=== PATIENT | male | born 1990 | race Caucasian/White ===

== ENCOUNTER → 2017-08-29 10:22 | Outpatient (CLI) | payer BC, SELFPAY ==
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
== END ==
PROVIDERS: PCP Family Medicine; Visit Provider Nurse Practitioner Family
DX: M25.561 Pain in right knee (principal)
CPT/HCPCS: 73562

== ENCOUNTER → 2018-08-28 08:41 | Outpatient (POV) | payer BC, SELFPAY | PROVIDERS: Visit Provider Otolaryngology | DX: Z00.00 Encounter for general adult medical examination without abnormal findings (principal) ==

== ENCOUNTER → 2018-08-31 14:30 | Outpatient (CLI) | payer BC, SELFPAY ==
--- NOTE | 2018-08-31 14:38 | CT_ITS ---
CT sinus wo con CLINICAL INDICATION: ITS.REASON: PRESSURE AND DECREASED HEARING BILATERALLY, FACIAL PAIN ORDERING PHYSICIAN: Nancy Farias MD PATIENT AGE: 28 years COMPARISON: None TECHNIQUE:Axial images obtained with sagittal and coronal reformats. All CT scans at the facility use one or more dose reduction, viz: automated exposure control, ma/kV adjustment per patient size (including targeted exams where dose is matched to indication, i.e. head), or iterative reconstruction technique. FINDINGS: Bones: Unremarkable. No fracture, lytic, or blastic changes evident Extracranial soft tissues: Unremarkable Sinuses: Unremarkable. No air-fluid levels or significant mucosal thickening Orbits: Unremarkable Other: There is mild leftward nasal septal deviation anteriorly. The ostiomeatal units are patent. Temporomandibular joints are unremarkable. No mastoid effusion. Middle ears are aerated. IMPRESSION: Negative CT of the sinuses
== END ==
PROVIDERS: PCP Family Medicine; Visit Provider Otolaryngology
DX: H91.93 Unspecified hearing loss, bilateral (principal); H93.8X3 Other specified disorders of ear, bilateral; R51 Headache
CPT/HCPCS: 70486

== ENCOUNTER → 2018-12-27 12:26 | Outpatient (CLI) | payer BC, SELFPAY ==
--- NOTE | 2018-12-27 12:33 | XR_ITS ---
XR sacrum coccyx min 2V CLINICAL INDICATION: ITS.REASON: COCCYDYNIA ORDERING PHYSICIAN: Magrot Rangel APRN PATIENT AGE: 28 years Comparison: None FINDINGS: No fracture or dislocation. Normal alignment. No lytic or blastic change. IMPRESSION: Negative sacrum/coccyx
== END ==
PROVIDERS: PCP Family Medicine; Visit Provider Nurse Practitioner Family
DX: M53.3 Sacrococcygeal disorders, not elsewhere classified (principal)
CPT/HCPCS: 72220

== ENCOUNTER → 2019-07-09 15:52 | Outpatient (CLI) | payer BC, SELFPAY ==
--- NOTE | 2019-07-09 16:00 | XR_ITS ---
PROCEDURE: XR LUMBAR SPINE MIN 4V CLINICAL INDICATION: LOW BACK PAIN Low back pain, COMPARISON: ABDPELWO CT abdomen pelvis wo con from 06/17/2018 FINDINGS: Normal alignment. No fracture or dislocation. No significant degenerative change. No lytic or blastic lesion. SI joints have an unremarkable appearance IMPRESSION: Negative lumbar spine Dictated by: Mikael Alvarze MD 07/09/2019 17:14 Electronically signed by Mikael Alvarez MD in [place] 07/09/2019 17:14
== END ==
PROVIDERS: PCP Family Medicine; Visit Provider Nurse Practitioner Family
DX: M54.5 Low back pain (principal)
CPT/HCPCS: 72110

== ENCOUNTER 2021-03-18 18:08 | Emergency (ER) | payer BC, SELFPAY ==
[2021-03-18 18:22] VITALS: BP 154/90; PULSE 78; RESP 16; TEMP 36.8; O2SAT 100; BMI 30.7
--- NOTE | 2021-03-18 18:23 | XR_ITS ---
PROCEDURE INFORMATION: Exam: XR Left Hand Exam date and time: 03/18/2021 6:23 PM Age: 31 years old Clinical indication: Pain; Hand; Left; Additional info: Transfer case hit it TECHNIQUE: Imaging protocol: XR Left hand. Views: 3 or more views. COMPARISON: No relevant prior studies available. FINDINGS: Bones/joints: No acute fracture or malalignment. Soft tissues: Soft tissue edema noted. Other findings: Punctate hyperdensities project over the palmar soft tissues of the proximal hand. IMPRESSION: 1. No acute osseous abnormality in the left hand. 2. Punctate hyperdensities project over the palmar soft tissues of the proximal hand, which may represent foreign body debris vs external contamination. Please correlate with physical exam.
[2021-03-18 18:49] VITALS: BP 154/90; PULSE 78; RESP 16; TEMP 36.8; O2SAT 100; BMI 19.5
--- NOTE | 2021-03-18 19:32 | HMH.EDUTC ---
[facility] [place] Clinical Impression: Laceration Disposition: Home, Self-Care Condition on Discharge: Good Instructions: How to Care for a Laceration After Repair, DI for Laceration Repair Additional Instructions: Suture instructions: You have required stitches today. Please read the following instructions so you know how to care for them: 1. Keep wound area dry for the first 24 hours. 2 May clean gently with mild soap and water, after 48 hours to prevent crusting over suture knots. 3. You may shower if your provider gives permission but do not take a bath until the skin is healed.. 4. Never leave a wet dressing or Band-Aid on your stitches as this allows bacteria to reach the area and may cause infection. Band-aids can cause the wound to sweat and not recommended to wear for long periods of time Watch for signs of infection: Increasing redness, tenderness or warmth around the suture site Unusual swelling around the site Appearance of pus around each suture or any red streaks Fever If you develop any of the above signs or symptoms of infection, Follow up with Family Physician immediately 5. Suture removal in __8-10__days 6. Return to [facility] or follow up with family doctor for removal. This can be done by any medical provider during regular hours on Monday through Monday, by appointment. Prescriptions: Amoxicillin/Potassium Clav [Augmentin 875-125 Tablet] 1 tab PO Q12H #14 tab Prescription Printed Referrals: Festus Bustamante MD [Primary Care Provider] - As needed Medical Decision Making - Jasson Inquiry Pt receiving controlled substance: No Jasson was queried for this patient: No Vital Signs: 03/18/21 18:22 03/18/21 18:49 Temperature 98.3 F 98.3 F Temperature Source Oral Oral Pulse Rate [Right] 78 78 Respiratory Rate 16 16 Blood Pressure [Right Arm] 154/90 H 154/90 H Blood Pressure Mean [Right Arm] 111 111 Blood Pressure Source [Right Arm] Automatic Cuff Blood Pressure Position [Right Arm] Sitting 02 Sat by Pulse Oximetry 100 100 Oxygen Delivery Method Room Air Orders (Tests/Meds): ED MEDICATIONS Discontinued Medications Generic Name Dose Route Start Last Admin Trade Name Freq PRN Reason Stop Dose Admin Tetanus/Diphtheria Toxoids 0.5 ml 03/18/21 19:15 03/18/21 19:15 Tetanus-Diphth Toxoid, Adult 0.5ml Syr IM 03/18/21 19:16 0.5 ml .ONCE ONE Administration - Radiology Data #1 Image(s): Hand Image Reviewed: Yes I have reviewed radiologist's interpretation IMPRESSION: 1. No acute osseous abnormality in the left hand. 2. Punctate hyperdensities project over the palmar soft tissues of the proximal hand, which may represent foreign body debris vs external contamination. Please correlate with physical exam. Medical Decision Narrative: wound explored and cleaned well no fb or debris noted [facility] [place] H[place] - General Stated complaint: AO smashed L hand working on Jeep Time Seen by Provider: 03/18/21 19:32 Mode of Arrival: Ambulatory Source of Information: Patient Limitations: No Limitations Description of Symptoms (Recalled from Triage Doc. by RN): c/o left pinky injury HEENT Symptoms (Recalled from RN notes): No Resp Symptoms (Recalled from RN notes): No Skin Symptoms (Recalled from RN notes): No MS Symptoms (Recalled from RN notes): Yes (left pinky injury) Functional Status (Recalled from RN notes): n/a - History of Present Illness Provider Complaint: Patient states that he was working on jeep when transfer case fell and pinched his left little finger between the case and the concrete causing laceration States that he has been able to move it and bend it but when he seen the cut he came in to have it checked - Related Data Previous Rx's Medication Instructions Recorded Amoxicillin/Potassium Clav 1 tab PO Q12H #14 tab 03/18/21 [Augmentin 875-125 Tablet] Allergies Allergy/AdvReac Type Severity Reaction Status Date / Time No Known Allergies Allergy Veri
[2021-03-18 20:37] VITALS: BP 154/90; PULSE 78; RESP 16; TEMP 36.8; O2SAT 100
== END 2021-03-18 20:38 | disposition home or self-care (01) ==
PROVIDERS: Emergency Provider Nurse Practitioner; PCP Family Medicine
DX: S61.217A Laceration without foreign body of left little finger without damage to nail, initial encounter (principal); W45.8XXA Other foreign body or object entering through skin, initial encounter
CPT/HCPCS: 12001; 73130; 90714; 99202; G0463

== ENCOUNTER → 2021-05-29 09:29 | Outpatient (CLI) | payer BC, SELFPAY | PROVIDERS: PCP Family Medicine; Visit Provider Nurse Practitioner Family | DX: Z20.822 Contact with and (suspected) exposure to COVID-19 (principal) | CPT/HCPCS: C9803; U0003; U0005 ==

== ENCOUNTER → 2021-05-30 09:05 | Outpatient (CLI) | payer BC, SELFPAY | PROVIDERS: PCP Family Medicine; Visit Provider Nurse Practitioner Family | DX: Z20.822 Contact with and (suspected) exposure to COVID-19 (principal) | CPT/HCPCS: C9803; U0003; U0005 ==

== ENCOUNTER 2021-09-05 09:00 | Emergency (ER) | payer BC, SELFPAY ==
[2021-09-05 09:11] VITALS: BP 134/110; PULSE 104; RESP 18; TEMP 37.5; O2SAT 97; BMI 36.9
--- NOTE | 2021-09-05 09:17 | HMH.EDUTC ---
[facility] – [place] Disposition Clinical Impression: Sinusitis Qualifiers: Sinusitis location: unspecified location Chronicity: acute Recurrence: non-recurrent Qualified Code(s): J01.90 - Acute sinusitis, unspecified Disposition: Home, Self-Care Condition on Discharge: Good Instructions: DI for Sinusitis Additional Instructions: Drink plenty of fluids. Take tylenol or ibuprofen for pain or fever. Take the medications as directed. Follow up with your regular doctor. GO TO THE ER FOR ANY WORSENING SYMPTOMS Prescriptions: Brompheniramine/Pseudoephed/Dm [Bromfed Dm Cough Syrup] 5 ml PO Q6HP PRN #240 ml PRN Reason: Cough Transmission Status: Pending to [facility] Ondansetron [Zofran 4mg ODT] 4 mg PO Q8HP PRN #20 tab PRN Reason: Nausea Transmission Status: Pending to [facility] methylPREDNISolone [Medrol] 4 mg PO DIRECTED 6 Days #21 packet Transmission Status: Pending to [facility] Azithromycin [Z-Alon 250mg Tab*] 250 mg PO UD DOSE PK #6 tab Transmission Status: Pending to [facility] Referrals: Festus Bustamante MD [Primary Care Provider] - Forms: Work/School Release Time of Disposition: 09:38 Medical Decision Making - Medical Records Medical records reviewed: No: I reviewed the patient's medical records. - Jasson Inquiry Pt receiving controlled substance: No Vital Signs: 09/05/21 09:11 Temperature 99.5 F Temperature Source Oral Pulse Rate [Left] 104 H Respiratory Rate 18 Blood Pressure [Right Arm] 134/110 H Blood Pressure Mean [Right Arm] 118 02 Sat by Pulse Oximetry 97 Orders (Tests/Meds): ORDERS Category Date Time Status Strep Scrn Group A (Rapid) Stat Lab 09/05/21 09:[address] [facility] [place] HPI - General Stated complaint: congestion, cough, sneezing, earache, fever Time Seen by Provider: 09/05/21 09:17 Mode of Arrival: Ambulatory Source of Information: Patient Limitations: No Limitations Description of Symptoms (Recalled from Triage Doc. by RN): pt c/o a fever, cough, sinus pressure/congestion, sneezing and a sore throat. HEENT Symptoms (Recalled from RN notes): Yes Resp Symptoms (Recalled from RN notes): Yes Skin Symptoms (Recalled from RN notes): No MS Symptoms (Recalled from RN notes): No Functional Status (Recalled from RN notes): wnl - History of Present Illness Provider Complaint: He states that for the past 3 days he has had a cough, sore throat, chills, and body aches. - Related Data Previous Rx's Medication Instructions Recorded Amoxicillin/Potassium Clav 1 tab PO Q12H #14 tab 03/18/21 [Augmentin 875-125 Tablet] Azithromycin [Z-Alon 250mg Tab*] 250 mg PO UD DOSE PK #6 tab 09/05/21 Brompheniramine/Pseudoephed/Dm 5 ml PO Q6HP PRN #240 ml 09/05/21 [Bromfed Dm Cough Syrup] Ondansetron [Zofran 4mg ODT] 4 mg PO Q8HP PRN #20 tab 09/05/21 methylPREDNISolone [Medrol] 4 mg PO DIRECTED 6 Days #21 09/05/21 packet Allergies Allergy/AdvReac Type Severity Reaction Status Date / Time montelukast [From Singulair] Allergy Verified 09/05/21 09:17 - Worker's Comp Is this a Worker's Comp case?: No [facility] History - Hepatitis A Screen Drug use history?: No High risk sexual behaviors?: No History of sexually transmitted infection?: No Currently employed?: No Childcare worker?: No Do you have indoor plumbing?: Yes Do you have electricity?: Yes Attestation statement:: This patient has been screened for Hepatitis A risk factors. I have reviewed the patient's past medical history: Yes - Social History Alcohol Intake: never ROS Obtained: Yes All systems reviewed & no additional complaints - Constitutional Constitutional: Reports as per HPI - Eyes Eyes: Denies eye discharge - ENT Ears, Nose, Mouth, and Throat: Reports as per HPI - Cardiovascular Cardiovascular: Denies chest pain - Respiratory Respiratory: Reports as per HPI - Gastrointestinal Gastrointestingal: Reports: nausea. Denies: abdomin
[2021-09-05 09:30] LABS: UTC Influenza A Antigen Negative (Negative); UTC Influenza B Antigen Negative (Negative)
[2021-09-05 09:42] LABS: Strep Scrn Group A (Rapid) Negative (Negative)
[2021-09-05 09:44] VITALS: BP 134/110; PULSE 104; RESP 18; TEMP 37.5
== END 2021-09-05 09:46 | disposition home or self-care (01) ==
PROVIDERS: Emergency Provider Nurse Practitioner Family; PCP Family Medicine
DX: J01.90 Acute sinusitis, unspecified (principal)
CPT/HCPCS: 87430; 87804; 99212; G0463

== ENCOUNTER 2022-03-11 09:09 | Emergency (ER) | payer BC, SELFPAY ==
--- NOTE | 2022-03-11 09:40 | EXP.UTC ---
Discharge Plan Disposition Patient Disposition: Home, Self-Care Condition: Good Prescriptions Prescriptions: No Action amoxicillin-pot clavulanate 1 EACH tablet 1 tab PO Q12H Qty: 14 0RF azithromycin 250 MG tablet 250 mg PO UD DOSE PK Qty: 6 0RF Rx Instructions: Take two (2) tablets today, then one (1) tablet days #2 thru #5 methylprednisolone 4 MG tablets,dose pack 4 mg PO DIRECTED 6 Days Qty: 21 0RF kzturptsabulpan-dtfqpbtqa-AP 118 ML syrup 5 ml PO Q6HP PRN (Reason: Cough) Qty: 240 0RF ondansetron 4 MG tablet,disintegrating 4 mg PO Q8HP PRN (Reason: Nausea) Qty: 20 0RF Referrals Follow up/Referrals: Festus Bustamante MD [Primary Care Provider] - See instructions Activity Restrictions/Add. Instructions Additional Instructions/Restrictions: *Monitor Temp, Over the counter Motrin or Tylenol as directed/as needed Tylenol every 4 hours and Motrin every 6 hours (as long as your family doctor has told you that you can take it) for fever or pain. and straight to ER if unable to lower temp less than 101.0 after medication given *Warm salt water gargles may help to soothe the throat *Throat Lozenges? *Warm fluids like tea with honey may help to soothe the throat? *Sleep elevated *Humidifier/Vaporizer Follow up IMMEDIATELY for new or worsening symptoms or no Noticeable improvement over the next 48-72 hours. 911 for difficulty breathing or swallowing You were tested for today for COVID19 your test result should be back in the next 24-48 hours, you may check your results on the [facility] My Health Portal Make sure to take your Vitamins Vit. C Vit D and Zinc if you can take them Clinical Impressions Clinical Impression: Exposure to COVID-19 virus Stand Alone Forms Stand Alone Forms: Work/School Release Instructions Patient Instructions: Coronavirus Disease 2019, Preventing the Spread of Coronavirus Discharge Instructions Discharge ED Provider: Christy Lockett [facility] [place] HPI General Stated complaint: covid exposure, congestion Time Seen by Provider: 03/11/22 09:59 History of Present Illness Provider Complaint: Patient states that he was around family member that tested positive this morning on home COVID test States that he has been having some nasal congestion and runny nose but nothing else Related Data Previous Rx's Medication Instructions Recorded amoxicillin 875 mg-potassium 1 tab PO Q12H #14 tabs 03/18/21 clavulanate 125 mg tablet azithromycin 250 mg tablet 250 mg PO UD DOSE PK #6 tabs 09/05/21 ddyaafzvsrhfeol-vaxpmlaqlekurvd-AW 5 ml PO Q6HP PRN Cough #240 mL 09/05/21 2 mg-30 mg-10 mg/5 mL oral syrup methylprednisolone 4 mg tablets in 4 mg PO DIRECTED 6 days #21 09/05/21 a dose pack packets ondansetron 4 mg disintegrating 4 mg PO Q8HP PRN Nausea #20 tabs 09/05/21 tablet Allergies Allergy/AdvReac Type Severity Reaction Status Date / Time montelukast [From Singulair] Allergy Verified 09/05/21 09:17 [facility] Social History Smoking Status: Unknown if ever smoked alcohol intake: never current occupational status: employed Travel in the last 8 weeks: None ROS Obtained: Yes All systems reviewed & no additional complaints except as documented and Yes Systems reviewed as appropriate & no additional complaints except as documented Constitutional Constitutional: Reports system reviewed and no additional complaints, except as documented, Reports as per HPI and Reports headache(s) ENT Ears, Nose, Mouth, and Throat: Reports system reviewed and no additional complaints, except as documented, Reports as per HPI, Reports headache(s), Reports nasal congestion and Reports nasal discharge Cardiovascular Cardiovascular: Reports system reviewed and no additional complaints, except as documented and Reports as per HPI Respiratory Respiratory: Reports system reviewed and no additional complaints, except as documented and Reports as per HPI Neurologic Neur
[2022-03-11 09:54] VITALS: BP 143/72; PULSE 70; RESP 18; TEMP 36.9; O2SAT 98; BMI 37.9
[2022-03-11 10:12] VITALS: BP 143/72; PULSE 70; RESP 18; TEMP 36.9; O2SAT 98
== END 2022-03-11 10:12 | disposition home or self-care (01) ==
PROVIDERS: Emergency Provider Nurse Practitioner; PCP Family Medicine
DX: U07.1 COVID-19 (principal); R11.0 Nausea; R05.9 Cough, unspecified; R51.9 Headache, unspecified; Z79.52 Long term (current) use of systemic steroids; Z79.899 Other long term (current) drug therapy; Z88.8 Allergy status to other drugs, medicaments and biological substances
CPT/HCPCS: 99213; C9803; G0463; U0003; U0005

== ENCOUNTER 2023-08-01 14:54 | Outpatient (CLI) | payer OTHER, SELFPAY ==
[2023-08-01 15:12] LABS: Alanine Aminotransferase 65 U/L (12-78); Albumin/Globulin Ratio 1.7 (1.1-1.8); Alkaline Phosphatase 88 U/L (38-126); Anion Gap 12.4 mEq/L (5-15); Aspartate Amino Transferase 71 U/L (17-59); Bilirubin,Total 0.5 mg/dl (0.2-1.3); Blood Urea Nitrogen 18 mg/dl (9-20); Calcium 9.5 mg/dl (8.4-10.2); Carbon Dioxide 29 mmol/L (22.0-30.0); Chloride 103 mmol/L (98-107); Estimated Glomerular Filt Rate 76 ml/min (>60); GFR (African American) 92 ML/MIN (>60); Glucose 64 mg/dl (74-100); HDL Cholesterol 56 mg/dl (40-60); Potassium 4.4 mmoL/L (3.5-5.1); Sodium 140 mmol/L (136-145); Triglycerides 310 mg/dl (30-150); VLDL Cholesterol 62 mg/dL (0-40)
[2023-08-01 15:23] LABS: Direct LDL Cholesterol 290.47 mg/dL (100-129)
[2023-08-01 15:26] LABS: Chol/HDL Ratio 9.1 (1-3.5); Cholesterol 511 mg/dl (140-200)
[2023-08-01 15:29] LABS: Free T4 (Free Thyroxine) < 0.07 ng/dl (0.78-2.19)
== END 2023-08-01 23:59 ==
LOC: LAB.DROPOF 14:54
PROVIDERS: PCP Nurse Practitioner Family; Visit Provider Nurse Practitioner Family
DX: E03.8 Other specified hypothyroidism (principal); E78.5 Hyperlipidemia, unspecified; Z79.899 Other long term (current) drug therapy
CPT/HCPCS: 80053; 80061; 84439; 84443

== ENCOUNTER 2023-09-12 14:08 | Outpatient (CLI) | payer OTHER, SELFPAY ==
[2023-09-12 14:32] LABS: Chol/HDL Ratio 4.2 (1-3.5); Cholesterol 190 mg/dl (140-200); HDL Cholesterol 45 mg/dl (40-60); Triglycerides 220 mg/dl (30-150); VLDL Cholesterol 44 mg/dL (0-40)
[2023-09-12 14:43] LABS: Direct LDL Cholesterol 104.06 mg/dL (100-129)
[2023-09-12 15:04] LABS: Thyroid Stimulating Hormone 6.14 uIU/mL (0.465-4.68)
[2023-09-13 09:09] LABS: Triiodothyronine (T3) Free 2.9 pg/mL (2.0-4.4)
== END 2023-09-12 23:59 ==
LOC: LAB.DROPOF 14:08
PROVIDERS: PCP Nurse Practitioner Family; Visit Provider Nurse Practitioner Family
DX: I10 Essential (primary) hypertension (principal); E78.5 Hyperlipidemia, unspecified; E03.9 Hypothyroidism, unspecified; Z87.891 Personal history of nicotine dependence
CPT/HCPCS: 80061; 84443; 84481

== ENCOUNTER 2023-12-27 12:20 | Outpatient (CLI) | payer OTHER, SELFPAY ==
[2023-12-27 13:15] LABS: Alanine Aminotransferase 42 U/L (12-78); Albumin Level 4.3 g/dl (3.5-5.0); Albumin/Globulin Ratio 1.8 (1.1-1.8); Alkaline Phosphatase 77 U/L (38-126); Anion Gap 10.3 mEq/L (5-15); Aspartate Amino Transferase 31 U/L (17-59); Bilirubin,Total 0.5 mg/dl (0.2-1.3); Blood Urea Nitrogen 27 mg/dl (9-20); Calcium 9.3 mg/dl (8.4-10.2); Carbon Dioxide 25 mmol/L (22.0-30.0); Chloride 108 mmol/L (98-107); Chol/HDL Ratio 6.1 (1-3.5); Cholesterol 264 mg/dl (140-200); Estimated Glomerular Filt Rate 96 ml/min (>60); GFR (African American) 116 ML/MIN (>60); Globulin 2.4 g/dL (1.3-3.2); Glucose 84 mg/dl (74-100); HDL Cholesterol 43 mg/dl (40-60); Potassium 4.3 mmoL/L (3.5-5.1); Sodium 139 mmol/L (136-145); Total Protein,Serum 6.7 g/dl (6.3-8.2); Triglycerides 220 mg/dl (30-150); VLDL Cholesterol 44 mg/dL (0-40)
[2023-12-27 13:26] LABS: Direct LDL Cholesterol 149.74 mg/dL (100-129)
[2023-12-27 13:31] LABS: T4 (Thyroxine) 10.6 ug/dl (5.53-11.0)
[2023-12-27 13:45] LABS: Thyroid Stimulating Hormone 1.45 uIU/mL (0.465-4.68)
[2023-12-29 12:53] LABS: Triiodothyronine (T3) Free 3.1 pg/mL (2.0-4.4)
== END 2023-12-27 23:59 | disposition home or self-care (01) ==
LOC: LAB.DROPOF 12:20
PROVIDERS: PCP Nurse Practitioner Family; Visit Provider Nurse Practitioner Family
DX: E78.2 Mixed hyperlipidemia (principal); E03.9 Hypothyroidism, unspecified
CPT/HCPCS: 80053; 80061; 84436; 84443; 84481

== ENCOUNTER 2024-03-26 13:47 | Outpatient (CLI) | payer OTHER, SELFPAY ==
[2024-03-26 13:57] LABS: Chol/HDL Ratio 6.7 (1-3.5); Cholesterol 248 mg/dl (140-200); HDL Cholesterol 37 mg/dl (40-60); Triglycerides 145 mg/dl (30-150); VLDL Cholesterol 29 mg/dL (0-40)
[2024-03-26 14:07] LABS: Direct LDL Cholesterol 158.73 mg/dL (100-129)
[2024-03-26 14:12] LABS: T4 (Thyroxine) 11.1 ug/dl (5.53-11.0)
[2024-03-26 15:10] LABS: Thyroid Stimulating Hormone 1.15 uIU/mL (0.465-4.68)
[2024-03-27 11:40] LABS: Triiodothyronine (T3) Free 2.9 pg/mL (2.0-4.4)
== END 2024-03-26 23:59 | disposition home or self-care (01) ==
LOC: LAB.DROPOF 13:47
PROVIDERS: PCP Nurse Practitioner Family; Visit Provider Nurse Practitioner Family
DX: E78.2 Mixed hyperlipidemia (principal); E03.9 Hypothyroidism, unspecified
CPT/HCPCS: 80061; 84436; 84443; 84481

== ENCOUNTER 2024-06-26 09:38 | Outpatient (CLI) | payer OTHER, SELFPAY ==
[2024-06-26 14:29] LABS: Free T4 (Free Thyroxine) 1.14 ng/dl (0.78-2.19)
[2024-06-26 15:51] LABS: T4 (Thyroxine) 9.7 ug/dl (5.53-11.0)
[2024-06-27 07:12] LABS: Triiodothyronine (T3) Free 2.6 pg/mL (2.0-4.4)
== END 2024-06-26 23:59 | disposition home or self-care (01) ==
LOC: LAB.DROPOF 06-27 09:38
PROVIDERS: PCP Nurse Practitioner Family; Visit Provider Nurse Practitioner Family
DX: E03.9 Hypothyroidism, unspecified (principal); E78.2 Mixed hyperlipidemia; I10 Essential (primary) hypertension
CPT/HCPCS: 84436; 84439; 84443; 84481

== ENCOUNTER 2024-12-16 14:06 | Outpatient (CLI) | payer OTHER, SELFPAY ==
[2024-12-16 14:33] LABS: Alanine Aminotransferase 32 U/L (12-78); Albumin Level 4.6 g/dl (3.5-5.0); Albumin/Globulin Ratio 2.1 (1.1-1.8); Alkaline Phosphatase 85 U/L (38-126); Anion Gap 18.0 mEq/L (5-15); Aspartate Amino Transferase 28 U/L (17-59); Bilirubin,Total 0.5 mg/dl (0.2-1.3); Blood Urea Nitrogen 22 mg/dl (9-20); Calcium 9.4 mg/dl (8.4-10.2); Carbon Dioxide 25 mmol/L (22.0-30.0); Chloride 102 mmol/L (98-107); Cholesterol 257 mg/dl (140-200); Creatinine,Serum 0.80 mg/dl (0.66-1.25); Estimated Glomerular Filt Rate 109 ml/min (>60); GFR (African American) 132 ML/MIN (>60); Globulin 2.2 g/dL (1.3-3.2); Glucose 79 mg/dl (74-100); HDL Cholesterol 39 mg/dl (40-60); Potassium 5.0 mmoL/L (3.5-5.1); Sodium 140 mmol/L (136-145); Total Protein,Serum 6.8 g/dl (6.3-8.2); Triglycerides 218 mg/dl (30-150)
[2024-12-16 14:52] LABS: T4 (Thyroxine) 10.5 ug/dl (5.53-11.0)
[2024-12-16 14:54] LABS: Free T4 (Free Thyroxine) 1.64 ng/dl (0.78-2.19)
[2024-12-16 15:05] LABS: Thyroid Stimulating Hormone 1.05 uIU/mL (0.465-4.68)
[2024-12-17 08:32] LABS: Triiodothyronine (T3) Free 3.0 pg/mL (2.0-4.4)
== END 2024-12-16 23:59 | disposition home or self-care (01) ==
LOC: LAB.DROPOF 14:06
PROVIDERS: PCP Nurse Practitioner Family; Visit Provider Nurse Practitioner Family
DX: E03.9 Hypothyroidism, unspecified (principal); E78.2 Mixed hyperlipidemia
CPT/HCPCS: 80053; 80061; 84436; 84439; 84443; 84481

== ENCOUNTER 2025-03-19 09:40 | Outpatient (CLI) | payer OTHER, SELFPAY ==
[2025-03-19 20:00] LABS: Albumin Level 4.2 g/dl (3.5-5.0); Chloride 103 mmol/L (98-107); Potassium 4.9 mmoL/L (3.5-5.1); Sodium 140 mmol/L (136-145)
[2025-03-19 20:02] LABS: Alanine Aminotransferase 35 U/L (12-78); Anion Gap 17.9 mEq/L (5-15); Aspartate Amino Transferase 28 U/L (17-59); Carbon Dioxide 24 mmol/L (22.0-30.0)
[2025-03-19 20:03] LABS: Albumin/Globulin Ratio 1.6 (1.1-1.8); Alkaline Phosphatase 110 U/L (38-126); Calcium 9.4 mg/dl (8.4-10.2); Cholesterol 252 mg/dl (140-200); Globulin 2.7 g/dL (1.3-3.2); Glucose 78 mg/dl (74-100); HDL Cholesterol 49 mg/dl (40-60); Total Protein,Serum 6.9 g/dl (6.3-8.2); Triglycerides 127 mg/dl (30-150)
[2025-03-19 20:09] LABS: Bilirubin,Total 0.1 mg/dl (0.2-1.3)
[2025-03-19 20:19] LABS: Blood Urea Nitrogen 20 mg/dl (9-20); Creatinine,Serum 0.80 mg/dl (0.66-1.25); Estimated Glomerular Filt Rate 109 ml/min (>60); GFR (African American) 132 ML/MIN (>60)
[2025-03-19 20:27] LABS: Thyroid Stimulating Hormone 1.87 uIU/mL (0.465-4.68)
== END 2025-03-19 23:59 ==
LOC: LAB.DROPOF 03-21 00:24
PROVIDERS: PCP Nurse Practitioner Family; Visit Provider Nurse Practitioner Family
DX: E03.9 Hypothyroidism, unspecified (principal); E78.5 Hyperlipidemia, unspecified
CPT/HCPCS: 80053; 80061; 84443

== ENCOUNTER 2025-03-30 17:13 | Emergency (ER) | payer SELFPAY ==
[2025-03-30] VITALS (9 sets, daily range): BP systolic 113–139; BP diastolic 68–88; PULSE 60–76; RESP 16–18; TEMP 36.8; O2SAT 95–100; BMI 33.5
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
--- NOTE | 2025-03-30 17:54 | ECG_ITS ---
APPROVED REPORT Exam: Resting ECG HR:63 bpm ECG Measurements Heart Rate 63 AXES [place] 174 P 27 QRSd 121 QRS 8 QT 383 T 9 QTc 391 Conclusion SINUS RHYTHM MODERATE INTRAVENTRICULAR CONDUCTION DELAY [110+ ms QRS DURATION] BORDERLINE ECG UNCONFIRMED REPORT Electronically signed by : EVELIA ROSALES, 04/01/2025 02:50:37
[2025-03-30] MEDS: ACETAMINOPHEN 500MG TAB 1000 MG PO (18:01)
[2025-03-30] MEDS: IBUPROFEN 600 MG TABLET PO (18:01)
[2025-03-30 18:16] LABS: Hematocrit 45.7 % (42.0-52.0); Hemoglobin 15.4 g/dL (14.1-18.0); Immature Granulocytes % 0.9 %; Mean Corpuscular HGB Conc 33.7 g/dL (31.8-35.4); Mean Corpuscular Hemoglobin 29.1 pg (27.0-31.2); Mean Corpuscular Volume 86.4 fl (80-94); Nucleated Red Blood Cells % 0 %; Platelet Count 258 K/mm3 (142-424); Red Blood Count 5.29 M/mm3 (4.60-6.20); Red Cell Distribution Width-SD 41.4 fL; White Blood Count 8.7 K/mm3 (4.8-10.8)
[2025-03-30 18:34] LABS: Alanine Aminotransferase 40 U/L (12-78); Albumin Level 4.6 g/dl (3.5-5.0); Albumin/Globulin Ratio 1.7 (1.1-1.8); Alkaline Phosphatase 118 U/L (38-126); Anion Gap 13.1 mEq/L (5-15); Aspartate Amino Transferase 43 U/L (17-59); Bilirubin,Total 0.6 mg/dl (0.2-1.3); Blood Urea Nitrogen 28 mg/dl (9-20); Calcium 9.0 mg/dl (8.4-10.2); Carbon Dioxide 27 mmol/L (22.0-30.0); Chloride 103 mmol/L (98-107); Creatinine Clearance Estimated 173 mL/min (50-200); Creatinine,Serum 0.90 mg/dl (0.66-1.25); Estimated Glomerular Filt Rate 95 ml/min (>60); GFR (African American) 115 ML/MIN (>60); Globulin 2.7 g/dL (1.3-3.2); Glucose 98 mg/dl (74-100); Lipase 124 U/L (23-300); Potassium 4.1 mmoL/L (3.5-5.1); Sodium 139 mmol/L (136-145); Total Protein,Serum 7.3 g/dl (6.3-8.2)
[2025-03-30 18:35] LABS: Activated Partial Thrombo Time 25.1 seconds (22.8-30.6); INR 0.95 (0.9-1.1); Prothrombin Time 10.6 seconds (10.1-12.5)
[2025-03-30 18:48] LABS: Troponin I < 0.01 ng/ml (0.00-0.034)
[2025-03-30] MEDS: 0.9 % SODIUM CHLORIDE 50 ML VIAL 40 ML IV (19:05)
[2025-03-30] MEDS: SODIUM CHLORIDE 0.9% 10ML SYR (RAD ONLY) 10 ML IV (19:06)
[2025-03-30] MEDS: IOPAMIDOL-370 (76%);100ML BOTTLE 80 ML IV (19:06)
== END 2025-03-30 20:42 | disposition home or self-care (01) ==
PROVIDERS: Emergency Provider Student in an Organized Health Care Education/Training Program; PCP Nurse Practitioner Family
DX: R07.89 Other chest pain (principal); M25.561 Pain in right knee; M25.562 Pain in left knee; M79.641 Pain in right hand; M79.642 Pain in left hand; V49.40XA Driver injured in collision with unspecified motor vehicles in traffic accident, initial encounter
CPT/HCPCS: 70450; 71275; 72125; 73120; 73560; 74174; 80053; 83605; 83690; 84484; 85025; 85610; 85730; 93005; 99285; Q9967